=== PATIENT | female | born 1990 | race Two or more races ===

== ENCOUNTER → 2018-10-19 | Outpatient (CLI) | payer BC ==
[2018-10-19 13:50] LABS: ADD MAN DIFF? NO
[2018-10-19 13:52] LABS: BASOPHIL # 0.1 10^3/ul (0.0-0.1); BASOPHILS % 0.9 % (0.0-2.0); EOSINOPHILS # 0.1 10^3/ul (0.0-0.5); EOSINOPHILS % 2.1 % (0.0-7.0); HEMATOCRIT 43.3 % (37.0-47.0); HEMOGLOBIN 14.1 g/dl (12.0-16.0); LYMPHOCYTES # 1.3 10^3/ul (0.8-2.9); LYMPHOCYTES % 22.4 % (15.0-51.0); MEAN CORPUSCULAR HEMOGLOBIN 30.5 pg (29.0-33.0); MEAN CORPUSCULAR HGB CONC 32.6 g/dl (32.0-37.0); MEAN CORPUSCULAR VOLUME 93.5 fl (82.0-101.0); MEAN PLATELET VOLUME 9.5 fl (7.4-10.4); MONOCYTE # 0.4 10^3/ul (0.3-0.9); MONOCYTES % 6.7 % (0.0-11.0); NEUTROPHILS % 67.7 % (39.0-77.0); PLATELET COUNT 261 10^3/UL (140-415); RED BLOOD COUNT 4.63 10^6/ul (4.20-5.40); RED CELL DISTRIBUTION WIDTH 12.2 % (11.5-14.5)
[2018-10-19 13:52] LABS: WHITE BLOOD COUNT 5.9 10^3/ul (4.8-10.8)
[2018-10-19 14:07] LABS: HEMOGLOBIN A1C 5.1 % (0-5.9)
[2018-10-19 14:09] LABS: ALANINE AMINOTRANSFERASE 11 IU/L (13-69); ALBUMIN 4.7 g/dl (3.3-4.9); ALBUMIN/GLOBULIN RATIO 1.34; ALKALINE PHOSPHATASE 49 IU/L (42-121); ANION GAP 7 (5-13); ASPARTATE AMINO TRANSFERASE 21 IU/L (15-46); BILIRUBIN,INDIRECT 0.8 mg/dl (0-1.1); BILIRUBIN,TOTAL 0.8 mg/dl (0.2-1.3); BLOOD UREA NITROGEN 11 mg/dl (7-20); CALCIUM 9.9 mg/dl (8.4-10.2); CARBON DIOXIDE 28 mmol/L (21-31); CHLORIDE 106 mmol/L (97-110); CHOL/HDL RATIO 3.2 RATIO; CHOLESTEROL 239 mg/dl (100-200); CREATININE 0.59 mg/dl (0.44-1.00); Estimated GFR > 60 mL/min (>60); GLUCOSE 89 mg/dl (70-220); HDL CHOLESTEROL 74 mg/dl (34-82); LDL CHOLESTEROL,CALCULATED 151 mg/dl; POTASSIUM 4.7 mmol/L (3.5-5.1); SODIUM 141 mmol/L (135-144); TOTAL PROTEIN 8.2 g/dl (6.1-8.1); TRIGLYCERIDES 69 mg/dl (0-149)
== END | disposition home or self-care (01) ==
LOC: LAB 13:33
DX: R73.03 Prediabetes (principal)
CPT/HCPCS: 80053; 80061; 82306; 83036; 85025

== ENCOUNTER → 2019-02-25 | Outpatient (CLI) | payer BC ==
[2019-02-25 09:43] LABS: ADD MAN DIFF? NO
[2019-02-25 09:45] LABS: WHITE BLOOD COUNT 6.8 10^3/ul (4.8-10.8)
[2019-02-25 09:45] LABS: BASOPHILS % 0.6 % (0.0-2.0); EOSINOPHILS # 0.1 10^3/ul (0.0-0.5); EOSINOPHILS % 1.6 % (0.0-7.0); HEMOGLOBIN 12.4 g/dl (12.0-16.0); LYMPHOCYTES # 1.4 10^3/ul (0.8-2.9); LYMPHOCYTES % 20.8 % (15.0-51.0); MEAN CORPUSCULAR HEMOGLOBIN 30.2 pg (29.0-33.0); MEAN CORPUSCULAR HGB CONC 32.6 g/dl (32.0-37.0); MEAN CORPUSCULAR VOLUME 92.7 fl (82.0-101.0); MEAN PLATELET VOLUME 9.5 fl (7.4-10.4); MONOCYTE # 0.5 10^3/ul (0.3-0.9); MONOCYTES % 7.8 % (0.0-11.0); NEUTROPHIL # 4.7 10^3/ul (1.6-7.5); NEUTROPHILS % 69.1 % (39.0-77.0); PLATELET COUNT 256 10^3/UL (140-415); RED CELL DISTRIBUTION WIDTH 12.8 % (11.5-14.5)
[2019-02-25 10:05] LABS: ALANINE AMINOTRANSFERASE 22 IU/L (13-69); ALBUMIN 4.3 g/dl (3.3-4.9); ALBUMIN/GLOBULIN RATIO 1.34; ALKALINE PHOSPHATASE 42 IU/L (42-121); ANION GAP 9 (5-13); ASPARTATE AMINO TRANSFERASE 18 IU/L (15-46); BILIRUBIN,INDIRECT 0.7 mg/dl (0-1.1); BILIRUBIN,TOTAL 0.7 mg/dl (0.2-1.3); BLOOD UREA NITROGEN 14 mg/dl (7-20); CALCIUM 9.2 mg/dl (8.4-10.2); CARBON DIOXIDE 27 mmol/L (21-31); CHLORIDE 106 mmol/L (97-110); CHOL/HDL RATIO 2.9 RATIO; CHOLESTEROL 179 mg/dl (100-200); CREATININE 0.62 mg/dl (0.44-1.00); Estimated GFR > 60 mL/min (>60); GLUCOSE 94 mg/dl (70-220); HDL CHOLESTEROL 61 mg/dl (34-82); LDL CHOLESTEROL,CALCULATED 105 mg/dl; POTASSIUM 4.1 mmol/L (3.5-5.1); SODIUM 142 mmol/L (135-144); TOTAL PROTEIN 7.5 g/dl (6.1-8.1); TRIGLYCERIDES 66 mg/dl (0-149)
== END | disposition home or self-care (01) ==
LOC: LAB 09:23
DX: E78.5 Hyperlipidemia, unspecified (principal); E55.9 Vitamin D deficiency, unspecified
CPT/HCPCS: 80053; 80061; 82306; 85025